=== PATIENT | female | born 1995 | race Two or more races ===

== ENCOUNTER 2023-08-24 12:05 | Emergency (ER) | payer MEDICAID ==
[~2023-08-24] VITALS: Ht 162.6 cm; Wt 70.2 kg
[2023-08-24] MEDS ORDERED: cefTRIAXone SOD 1,000 MG VL IM ONE (18:30)
[2023-08-24] MEDS ORDERED: ACET500T58 PO (18:33)
[2023-08-24] MEDS ORDERED: DICL500C76 PO (18:33)
[2023-08-24 18:34] VITALS: BP 121/85; PULSE 87; RESP 16; TEMP 98.5; O2SAT 98
[2023-08-24] MEDS ORDERED: LIDOCAINE 1% HCL (LOCAL ANESTH.) INJ 20ML MDV IJ ONE (18:45)
== END 2023-08-24 18:54 | disposition home or self-care (01) ==
LOC: ER 12:05
DX: N61.0 Mastitis without abscess (principal)
CPT/HCPCS: 96372; 99283; J0696; J2001